=== PATIENT | female | born 1985 | race Caucasian/White ===

== ENCOUNTER 2016-11-30 01:32 | Emergency (ER) | payer OTHER ==
[2016-11-30] MEDS ORDERED: HYDROMORPHONE HCL INJ/PF 2 MG/ML AMPULE IM ONE (02:10)
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
[2016-11-30] MEDS ORDERED: OXYCODONE-ACETAMINOPHEN 5-325 MG TABLET PO ONE (04:01)
[2016-11-30 04:34] VITALS: BP 98/80
== END 2016-11-30 04:34 | disposition home or self-care (01) ==
LOC: ER 01:32
PROC: 2W3CX1Z Immobilization of Right Lower Arm using Splint (ICD-10-PCS; principal; 2016-11-30)
DX: S52.691A Other fracture of lower end of right ulna, initial encounter for closed fracture (principal); Y00.XXXA Assault by blunt object, initial encounter; M79.631 Pain in right forearm; F17.200 Nicotine dependence, unspecified, uncomplicated; Z79.01 Long term (current) use of anticoagulants
CPT/HCPCS: 99283; 96372; 73070; 73110; 29125; J1170